=== PATIENT | female | born 1940 | race Caucasian/White ===

== ENCOUNTER → 2016-02-23 | Outpatient (CLI) | payer BC ==
[~2016-02-23] MED LIST: ALPR-385 PO; AMLH/550 PO; BISA-16 PO; CHOL20007 PO; FLUT27.5 NAE; GLIP2.5T11 PO; MCRK/10 PO; OFLO0.3S OP; PRED1SUS3; TAMO20TA47 PO
[2016-02-23 13:20] LABS: ESTIMATED AVERAGE GLUCOSE 126 mg/dl; HA1C FLAG Normal (Normal)
== END | disposition home or self-care (01) ==
LOC: C.LAB1850 10:46
PROVIDERS: ATTEND Internal Medicine
DX: E11.9 Type 2 diabetes mellitus without complications (principal)

== ENCOUNTER → 2016-07-02 | Outpatient (CLI) | payer BC ==
[~2016-07-02] MED LIST changes: -TAMO20TA47 PO; +TAMO20TA9 PO
--- NOTE | 2016-07-03 07:55 | MAMMOGRAPHY REPORT ---
UNILATERAL LEFT DIGITAL SCREENING MAMMOGRAM TOMOSYNTHESIS WITH CAD: 07/02/2016 CLINICAL HISTORY: Asymptomatic. Personal history of breast cancer. TECHNIQUE: Left CC and MLO today digital and tomosynthesis images, 2-D left XCCL views were obtained . Current study was also evaluated with a Computer Aided Detection (CAD) system. COMPARISON: Comparison is made to exams dated: 06/30/2015 mammogram, 06/28/2014 mammogram, 06/24/2013 mammogram, 06/24/2012 mammogram, 06/19/2012 mammogram, and 06/18/2011 mammogram - [facility] enter. BREAST COMPOSITION: There are scattered areas of fibroglandular density in the left breast. FINDINGS: There is an incompletely visualized 5 mm nodular asymmetry in the lateral posterior left breast, only seen on the exaggerated lateral CC view. Although this could represent a lymph node, d efinitive characterization with spot compression tomosynthesis views in the exaggerated lateral plan e and possibly a repeat MLO view and possibly ultrasound are recommended. There are stable benign-appearing rodlike, probable secretory calcifications throughout the left toney ast, most numerous in the lower inner quadrant. No other suspicious mass, architectural distortion or cluster of microcalcifications is seen. IMPRESSION: ACR BI-RADS CATEGORY 0: INCOMPLETE EVALUATION: NEED ADDITIONAL IMAGING EVALUATION The incompletely visualized 5 mm nodular asymmetry in the lateral, posterior left breast needs addit ional evaluation. The patient will be called to schedule an appointment. Approximately 10% of breast cancers are not detected with mammography. A negative mammographic repor t should not delay biopsy if a clinically suggestive mass is present. Livier Johnston M.D. ay/:07/02/2016 16:44:43 Toaster Operator: Sobeida CHRISTINE(Gregorio)([place])([place]), [facility] letter sent: Addl Imaging 0 BI-RADS Code: ACR BI-RADS Category 0: Incomplete Evaluation: Need Additional Imaging Evaluation
== END | disposition home or self-care (01) ==
LOC: C.MAMM 08:31
PROVIDERS: ATTEND Surgery
DX: Z12.31 Encounter for screening mammogram for malignant neoplasm of breast (principal); Z85.3 Personal history of malignant neoplasm of breast; Z90.11 Acquired absence of right breast and nipple; N64.89 Other specified disorders of breast

== ENCOUNTER → 2016-07-06 | Outpatient (CLI) | payer BC ==
--- NOTE | 2016-07-06 15:25 | MAMMOGRAPHY REPORT ---
UNILATERAL LEFT DIGITAL DIAGNOSTIC MAMMOGRAM TOMOSYNTHESIS AND TARGETED LEFT ULTRASOUND: 07/06/2016 CLINICAL HISTORY: Callback from screening mammogram for left breast asymmetry. TECHNIQUE: Breast tomosynthesis in addition to standard 2D mammography was performed. Spot ho kathie left X CCL 2-D and tomosynthesis images were obtained. COMPARISON: Comparison is made to exams dated: 07/02/2016 mammogram, 06/30/2015 mammogram, 06/28/2014 mammogram, 06/24/2013 mammogram, 06/19/2012 mammogram, and 06/18/2011 mammogram - [facility] enter. BREAST COMPOSITION: There are scattered areas of fibroglandular density in the left breast. FINDINGS: Spot compression views of the left breast demonstrate a persistent reniform circumscribed 5 mm mass seen within the left lateral breast. A fat density notch is seen, suggestive of an intra mammary lymph node. In retrospect, a similar mass was seen in this region on the X CCL view from th e 06/24/2013 exam, and does not appear significantly changed in size. Targeted ultrasound was performed of the left far lateral breast in the region of the mammographic m ass. In the left breast at 3:00, 13 cm from the nipple, there is an oval circumscribed 5 x 5 mm mas s, which contains an echogenic fatty hilum and peripheral hypoechoic cortex. This corresponds with the stable mammographic mass and is consistent with a morphologically normal intramammary lymph node . IMPRESSION: ACR BI-RADS CATEGORY 2: BENIGN, TARGETED ULTRASOUND ACR BI-RADS CATEGORY 2: BENIGN Morphologically normal 5 mm intramammary lymph node in the left breast at 3:00, which corresponds wi th the mammographic mass. There is no mammographic or targeted sonographic evidence of malignancy. A 1 year screening mammogram is recommended. The patient has been verbally notified of the results. Approximately 10% of breast cancers are not detected with mammography. A negative mammographic repor t should not delay biopsy if a clinically suggestive mass is present. Farideh Sanders M.D. /:07/06/2016 14:14:23 Cake Washer: Darlene Penn RT(R)(M), [facility] letter sent: Normal 1/2 BI-RADS Code: ACR BI-RADS Category 2: Benign Ultrasound BI-RADS: ACR BI-RADS Category 2: Benign
== END | disposition home or self-care (01) ==
LOC: C.MAMM 13:32
PROVIDERS: ATTEND Surgery
DX: N63 Unspecified lump in breast (principal)

== ENCOUNTER → 2016-09-11 | Outpatient (CLI) | payer BC ==
[~2016-09-11] MED LIST changes: +TAMO20TA47 PO; -TAMO20TA9 PO
[2016-09-11 12:30] LABS: ESTIMATED AVERAGE GLUCOSE 128 mg/dl; HA1C FLAG Normal (Normal)
== END | disposition home or self-care (01) ==
LOC: C.LAB1850 10:37
PROVIDERS: ATTEND Internal Medicine
DX: E11.9 Type 2 diabetes mellitus without complications (principal)

== ENCOUNTER → 2017-04-09 | Outpatient (CLI) | payer BC ==
[~2017-04-09] MED LIST changes: -TAMO20TA47 PO; +TAMO20TA9 PO
[2017-04-09 13:12] LABS: HEMOGLOBIN A1C 6.4 % (4.5-5.6)
== END | disposition home or self-care (01) ==
LOC: C.LAB1850 10:55
PROVIDERS: ATTEND Internal Medicine
DX: E11.9 Type 2 diabetes mellitus without complications (principal)

== ENCOUNTER → 2017-07-01 | Outpatient (CLI) | payer BC ==
[2017-07-01 09:51] LABS: BASO % 0.9 %; BASO ABS # 0.05 K/uL (0-0.2); EOS % 2.7 %; EOS ABS # 0.16 K/uL (0-0.5); HEMATOCRIT 44.2 % (37-47); HEMOGLOBIN 15.5 g/dL (12.0-16.0); IG# 0.01 K/uL (0.00-0.02); LYMPH % 40.5 %; LYMPH ABS # 2.36 K/uL (1.2-3.4); MEAN CELL VOLUME 89.7 fL (80-100); MEAN CORPUSCULAR HEMOGLOBIN 31.4 pg (25-34); MEAN CORPUSCULAR HGB CONC 35.1 g/dl (32-36); MEAN PLATELET VOLUME 9.7 fL (7.4-10.4); MONO % 10.8 %; MONO ABS # 0.63 K/uL (0.11-0.59); NEUT % 44.9 %; NEUT ABS # 2.61 K/uL (1.4-6.5); PLATELET COUNT 234 K/uL (130-400); RED CELL DISTRIBUTION WIDTH CV 13.3 % (11.5-14.5); RED CELL DISTRIBUTION WIDTH SD 43.6 fL (36.4-46.3); WHITE BLOOD COUNT 5.82 K/uL (4.8-10.8)
[2017-07-01 10:09] LABS: ALBUMIN 3.9 gm/dl (3.4-5.0); ALKALINE PHOSPHATASE 37 U/L (45-117); ALT/SGPT 26 U/L (12-78); AST/SGOT 20 U/L (15-37); BLOOD UREA NITROGEN 20 mg/dl (7-18); CALCIUM 9.2 mg/dl (8.5-10.1); CARBON DIOXIDE 34 mmol/L (21-32); CHOLESTEROL 215 mg/dl (0-200); CREATININE 0.89 mg/dl (0.60-1.20); GLUCOSE 144 mg/dl (70-99); LDL CHOLESTEROL CALCULATED 108 mg/dl; POTASSIUM 3.4 mmol/L (3.5-5.1); SODIUM 138 mmol/L (136-145); TOTAL PROTEIN 7.5 gm/dl (6.4-8.2)
[2017-07-01 10:38] LABS: CREATININE RANDOM URINE 48.3 mg/dl
[2017-07-01 10:41] LABS: HEMOGLOBIN A1C 6.3 % (4.5-5.6)
== END | disposition home or self-care (01) ==
LOC: C.LAB1850 06:38
PROVIDERS: ATTEND Internal Medicine
DX: E11.9 Type 2 diabetes mellitus without complications (principal)

== ENCOUNTER → 2017-07-03 | Outpatient (CLI) | payer BC ==
--- NOTE | 2017-07-03 14:23 | MAMMOGRAPHY REPORT ---
UNILATERAL LEFT DIGITAL SCREENING MAMMOGRAM TOMOSYNTHESIS WITH CAD: 07/03/2017 CLINICAL HISTORY: Asymptomatic. Personal history of breast cancer. TECHNIQUE: Breast tomosynthesis in addition to standard 2D mammography was performed. Current study was also evaluated with a Computer Aided Detection (CAD) system. COMPARISON: Comparison is made to exams dated: 07/06/2016 mammogram, 07/02/2016 mammogram, 06/30/2015 m ammogram, 06/28/2014 mammogram, 06/24/2013 mammogram, and 06/19/2012 mammogram - [facility] nter. BREAST COMPOSITION: There are scattered areas of fibroglandular density in the left breast. FINDINGS: There are no suspicious masses, calcifications, or areas of architectural distortion noted within the left breast. There has been no significant interval change compared to prior exams. A mo rphologically normal intramammary lymph node in the left upper outer quadrant is stable. Scattered b enign-appearing left breast calcifications are not significantly changed. IMPRESSION: ACR BI-RADS CATEGORY 2: BENIGN There is no mammographic evidence of malignancy in the left breast. A 1 year screening mammogram is r ecommended. The patient will receive written notification of the results. Approximately 10% of breast cancers are not detected with mammography. A negative mammographic report should not delay biopsy if a clinically suggestive mass is present. Farideh Sanders M.D. /:07/03/2017 09:20:39 Research Test Engine Operator: Darlene CHRISTINE(Gregorio)(M), [facility] letter sent: Normal 1/2 BI-RADS Code: ACR BI-RADS Category 2: Benign
== END | disposition home or self-care (01) ==
LOC: C.MAMM 08:44
PROVIDERS: ATTEND Surgery
DX: Z12.31 Encounter for screening mammogram for malignant neoplasm of breast (principal)